=== PATIENT | male | born 1965 | race Asian ===

== ENCOUNTER → 2025-02-20 08:04 | Outpatient (REF) | payer OTHER, SELFPAY | LOC: RAD 08:04 | PROVIDERS: ATTENDING PHYSICIAN Family Medicine | DX: R79.89 Other specified abnormal findings of blood chemistry (principal) | CPT/HCPCS: 76700 ==

== ENCOUNTER 2025-08-13 09:15 | Emergency (ER) | payer OTHER, SELFPAY ==
[2025-08-13 09:23] VITALS: BP 152/112
[2025-08-13 09:46] VITALS: BP 143/96
[2025-08-13 10:00] VITALS: BP 145/100
--- NOTE | 2025-08-13 10:34 | ED.GENMED ---
History of Present Illness
<Pino Pittman MD, Resident - Last Filed: 08/13/25 13:50>
General
Chief Complaint: Dizziness
Source: patient and spouse
Time Seen by Provider: 08/13/25 09:46
History of Present Illness
History of Present Illness:
Faye is a 60-year-old male, with past medical history significant for essential hypertension for which he takes amlodipine 2.5 mg daily. He came to ER with complaint of dizziness, headache, neck pain and jaw pain for last 1 week and an episode of
syncope 2 days ago.
He was having jaw pain on right side for last couple of weeks, which self resolved and then from last 1 week he was having mild dizziness, headache and neck pain. He did not take any medications for that and had no PCP visits for that. 2 days ago,
while he was sleeping he had an episode of intense dizziness that woke him up from sleep. He moved his head left and right which worsened the dizziness and then he tried to sit up which caused intense nausea and he felt like his vision blacked out
and he felt like he was going to faint but did not lose consciousness. The symptoms resolved in the next day he had mild dizziness and headache and he also had chest discomfort which he is describes as throbbing in nature. Today, he called his
primary care physician for persistent dizziness and headache and PCP told him to come to the ER.
Denies having any recent chiropractor manipulation of neck, recent heavy lifting or heavy work at home or work. He does not report any overt distress.
Denies any fever, chills, numbness, tingling, weakness on any side.
Past History
<Pino Pittman MD, Resident - Last Filed: 08/13/25 13:50>
Past History
ED Past Medical History: HTN
ED Past Surgical History: None
Social History
Tobacco: Non-smoker
Alcohol: None
Drug: None
Personal:
Living: with family
Employment: Employed (finance)
Family History
Family History: Other (Brother with colon cancer)
Phy Exam
<Pino Pittman MD, Resident - Last Filed: 08/13/25 13:50>
General Physical Exam
General Presentation: well appearing and no apparent distress
General Skin: warm and dry
General Habitus: normal
General Mental: alert
General Hydration: appears well hydrated
ENT Exam
ENT Exam: EOMI and pharynx normal
Eye Exam
Eye Exam: PERRL and conjunctiva normal
Cardiovascular Exam
Cardiovascular Exam: regular rate/rhythm, no edema, no murmur and normal peripheral pulses
Pulmonary Exam
Pulmonary Exam: lungs clear, no respiratory distress, no rales, no crackles and no wheezing
Gastrointestinal Exam
Gastrointestinal Exam: normal bowel sounds, non tender and soft
Neurological Exam
Neurological Exam: alert, oriented x3, CN II-XII intact, no sensory deficits, speech normal and cerebellum intact
Musculoskeletal Exam
Musculoskeletal Exam: full ROM and neck pain (On extension of neck)
Skin Exam
Skin Exam: normal color and warm/dry
Psychiatric Exam
Psychiatric Exam: normal mood/affect
Course
<Pino Pittman MD, Resident - Last Filed: 08/13/25 13:50>
Orders/Labs/Results
Orders:
Orders
08/13/25 09:16
Electrocardiogram (*1) Urgent
Reason for Study: Vertigo / Dizzy
EKG- Treatment ONCE
08/13/25 10:46
Orthostatic VS- Treatment ONCE
08/13/25 10:50
CBC/With Diff [Complete Blood Count/With Diff] Urgent
Comprehensive Metabolic Panel Urgent
08/13/25 11:21
CT Head & Neck Angio W/wo IV Urgent
Comment:
Reason For Exam: CAROTID ARTERY DISSECTION
08/13/25 13:07
Physical Therapy Consult [Pt Eval And Treat] Urgent
Treatment: dizziness
Activity Level: As Tolerated
Abnormal Lab Results
08/13/25
10:50
Absolute Lymphs (auto) 0.9 L 10^3/uL
(1.2-3.4)
Lymphocytes % 16.7 L %
(20.5-51.1)
Carbon Dioxide 31 H mmol/L
(22-30)
08/13/25 10:50
08/13/25 10:50
Vital Signs
Initial and Last Documented VS:
Initial Vital Signs
Temp Pulse Resp BP Pulse Ox
98.0 F 102 18 152/112 120
08/13/25 09:23 08/13/25 09:23 08/13/25 09:23 08/13/25 09:23 08/13/25 09:23
Last Documented Vital Signs
Temp Pulse Resp BP Pulse Ox
98.0 F 86 18 140/85 100
08/13/25 09:23 08/13/25 15:10 08/13/25 15:10 08/13/25 15:10 08/13/25 15:10
<Gregory Gardner MD - Last Filed: 08/14/25 19:14>
Orders/Labs/Results
Orders:
Orders
08/13/25 09:16
Electrocardiogram (*1) Urgent
Reason for Study: Vertigo / Dizzy
EKG- Treatment ONCE
08/13/25 10:46
Orthostatic VS- Treatment ONCE
08/13/25 10:50
CBC/With Diff [Complete Blood Count/With Diff] Urgent
Comprehensive Metabolic Panel Urgent
08/13/25 11:21
CT Head & Neck Angio W/wo IV Urgent
Comment:
Reason For Exam: CAROTID ARTERY DISSECTION
08/13/25 13:07
Physical Therapy Consult [Pt Eval And Treat] Urgent
Treatment: dizziness
Activity Level: As Tolerated
Abnormal Lab Results
08/13/25
10:50
Absolute Lymphs (auto) 0.9 L 10^3/uL
(1.2-3.4)
Lymphocytes % 16.7 L %
(20.5-51.1)
Carbon Dioxide 31 H mmol/L
(22-30)
08/13/25 10:50
08/13/25 10:50
Vital Signs
Initial and Last Documented VS:
Initial Vital Signs
Temp Pulse Resp BP Pulse Ox
98.0 F 102 18 152/112 120
08/13/25 09:23 08/13/25 09:23 08/13/25 09:23 08/13/25 09:23 08/13/25 09:23
Last Documented Vital Signs
Temp Pulse Resp BP Pulse Ox
98.0 F 86 18 140/85 100
08/13/25 09:23 08/13/25 15:10 08/13/25 15:10 08/13/25 15:10 08/13/25 15:10
<Pino Pittman MD, Resident - Last Filed: 08/13/25 13:50>
MDM/Problems Addressed
Differential Diagnosis Includes:
Carotid artery dissection
Vertebral artery dissection
Carotid sinus hypersensitivity
BPPV
Orthostatic hypotension
MDM/Problems Addressed:
Based on clinical assessment, we would order a CT angio of head and neck to look for carotid artery dissection/vertebral artery dissection in neck.
Patient does not have any active dizziness at this time with change in head position vestibular therapy will not be helpful at this time
Will check a baseline blood work to make sure that the blood counts, serum electrolytes are fine
Continue to monitor
<Pino Pittman MD, Resident - Last Filed: 08/13/25 13:50>
*Pulse Oximetry
SaO2: 97
Oxygen Mode of Delivery: Room air
Patient hypoxic: no
*Critical Care Note
Total Time (30-74mins, 75-104mins- exclusive of procedures): Not Applicable
ED Attending Note
<Pino Pittman MD, Resident - Last Filed: 08/13/25 13:50>
-
Portions of this chart may have been created with voice recognition software.� Occasional wrong word or��sound alike� substitutions may have occurred due to the inherent limitations of voice recognition software.
<Gregory Gardner MD - Last Filed: 08/14/25 19:14>
ED Attending Note
Patient seen and examined by attending physician: Yes
ED Attending Note:
Patient presents to ED secondary to intermittent episodes of diffuse headache, neck pain, associated with dizziness over the past 3 days. Denies fever or chills. Denies blurred vision. Denies difficulty with speech. Denies loss of sensation or
weakness. Denies difficulty with ambulation. Denies recent injury. Denies recent change in activities. Denies previous history of similar symptoms.
Physical Exam
General: no apparent distress, not acutely ill. afebrile
Head: nc/at. eomi. no nystagmus
Neck: supple. no meningeal signs. no midline tenderness. normal range of motion.
Heart: s1/s2 regular rate and rhythm
Lungs: no acute respiratory distress. clear bilaterally
Abdomen: normal bowel sounds. not tender.
Neuro: alert and oriented x 3. no focal neurological deficits
Skin: no rash
Psychiatric: well kept. interactive and cooperative
Extremities: no edema. no calf tenderness.
Patient with an unremarkable In ED, including blood work and CT angiogram head and neck. Patient otherwise remains afebrile, hemodynamically stable, and neurologically intact during observation. Patient also evaluated in ED by physical therapy,
who was not able to elicit any recurrent symptoms. As such, patient will be discharged home at this time, with referral to PCP as well as neurology, along with potential outpatient vestibular evaluation/treatment.
Discharge Plan
Departure
Patient Disposition: Home (Routine Discharge)
Date of Disposition: 08/13/25
Time of Disposition: 14:36
Patient with high blood pressure during this ER visit?: No
Discharge Problem:
Near syncope
Instructions: Vertigo (a Type of Dizziness) (DC), Dizziness
Prescriptions:
No Action
amlodipine 2.5 MG tablet
2.5 mg PO DAILY
Referrals:
OUTPATIENT PHYSICAL THERAPY [Other, Physical Medicine and Rehab] - Follow up in 2-3 days
Referral Note: OUTPATIENT PHYSICAL THERAPY,PLEASE CALL TO SCHEDULE AN APPT
[phone]
Estuardo Osullivan Jr., DO [Family Provider, Internal Medicine]
Activity Restrictions/Additional Instructions:
USE TYLENOL/IBOPRUFEN NEEDED FOR PAIN
OUTPATIENT PHYSICAL THERAPY
SEE NEUROLOGY FOR PERSISTENT SYMPTOMS
Interventions
Interventions:
*Risk Screen - Suicide Last Done: 08/13/25 09:23
*General Assessment Last Done: 08/13/25 10:12
*Neglect/Abuse Screening Last Done: 08/13/25 10:12
*ED- Fall Risk Assessment Last Done: 08/13/25 10:12
*ED COVID-19 Vaccine History Last Done: 08/13/25 10:12
*ED Influenza Vaccine History Last Done: 08/13/25 10:12
*Nursing Disposition Last Done: 08/13/25 15:15
ED- Neurological Assessment Last Done: 08/13/25 10:12
ED- Cardiac Assessment Last Done: 08/13/25 10:12
Discharge Date and Time
Discharge Date/Time: 08/13/25 15:15
Print Language: [place]
[2025-08-13 10:39] VITALS: BMI 21.0
[2025-08-13 10:56] VITALS: BP 118/100; BP 125/95; BP 135/103; PULSE 88; PULSE 93; PULSE 94
[2025-08-13 11:00] LABS: Hematocrit 49.7 % (39.0-52.0); Hemoglobin 16.6 g/dL (13.0-18.0); Mean Corp Hgb Conc. 33.4 g/dL (33.0-37.0); Mean Corpuscular Volume 89.4 fL (80.0-94.0); Nucleated Red Blood Cells % 0 % (-); Platelet Count 170 10^3/uL (130-400); Red Cell Dist. Width 11.9 % (11.5-14.5)
[2025-08-13 11:15] LABS: ALT (SGPT) 50 U/L (0-50); AST (SGOT) 40 U/L (17-59); Albumin 4.4 g/dl (3.5-5.0); Alkaline Phosphatase 48 U/L (38-126); Blood Urea Nitrogen 17 mg/dl (9-20); Calcium 8.9 mg/dl (8.4-10.2); Carbon Dioxide 31 mmol/L (22-30); Chloride 104 mmol/L (98-107); Glucose 99 mg/dl (70-99); Potassium 3.9 mmol/L (3.5-5.1); Sodium 139 mmol/L (135-145); Total Protein 7.6 g/dl (6.3-8.2)
[2025-08-13 11:36] LABS: Estimated Creatinine Clearance 52 ml/min; eGFR > 60.00
[2025-08-13 14:21] VITALS: BP 140/102; PULSE 94
[2025-08-13 15:10] VITALS: BP 140/85
== END 2025-08-13 15:15 | disposition home or self-care (01) ==
LOC: EMR 09:15
PROVIDERS: EMERGENCY PHYSICIAN Emergency Medicine; FAMILY PHYSICIAN Family Medicine
DX: R55 Syncope and collapse (principal); I10 Essential (primary) hypertension; Z80.0 Family history of malignant neoplasm of digestive organs
CPT/HCPCS: 99284; 70496; 70498; 80053; 85025; 93005; Q9967

== ENCOUNTER → 2025-08-28 10:06 | Outpatient (REF) | payer OTHER, SELFPAY | LOC: RCS 10:06 | PROVIDERS: ATTENDING PHYSICIAN Internal Medicine Cardiovascular Disease; FAMILY PHYSICIAN Family Medicine | DX: R07.2 Precordial pain (principal); I77.89 Other specified disorders of arteries and arterioles | CPT/HCPCS: 93306 ==

== ENCOUNTER → 2025-09-05 06:57 | Outpatient (REF) | payer OTHER, SELFPAY | LOC: MRI 06:57 | PROVIDERS: ATTENDING PHYSICIAN Family Medicine | DX: R42 Dizziness and giddiness (principal); R51.9 Headache, unspecified; R41.3 Other amnesia | CPT/HCPCS: 70551 ==

== ENCOUNTER → 2025-09-06 09:41 | Outpatient (REF) | payer OTHER, SELFPAY | LOC: RCS 09:41 | PROVIDERS: ATTENDING PHYSICIAN Internal Medicine Cardiovascular Disease; FAMILY PHYSICIAN Family Medicine | DX: R07.2 Precordial pain (principal); I77.89 Other specified disorders of arteries and arterioles | CPT/HCPCS: 93017; 93350 ==